=== PATIENT | male | born 1955 | race Caucasian/White ===

== ENCOUNTER 2019-06-05 16:38 | Emergency (ER) | payer MEDICARE, BC ==
[2019-06-05] MEDS ORDERED: Aspirin 325 MG Tab.EC PO ONE (17:08)
--- NOTE | 2019-06-05 17:36 | EDM.PDOC ---
<Sd Garcia - Last Filed: 06/05/19 19:15> ED HPI GENERAL MEDICAL PROBLEM - General Chief Complaint: Chest Pain Stated Complaint: CHEST PAIN Time Seen by Provider: 06/05/19 16:50 Source of Information: Reports: Patient History Limitations: Reports: No Limitations - History of Present Illness INITIAL COMMENTS - FREE TEXT/NARRATIVE: This is a 63-year-old male with a history of coronary artery disease requiring CABG, hypertension, hyperlipidemia who presents with concerns of chest pain. He reports that his symptoms started yesterday evening. He had a sensation of burning chest pain across his entire chest including his shoulders. The pain came on while he was at rest. He road the exercise bike earlier in the day and had no difficulty. There is no associated dyspnea. The pain has not been exertional. Pain subsided nearly went away overnight. He exercised again this morning. The pain then returned this afternoon prompting his presentation to the ER now. He reports he has no prior history of similar pain. He was not experiencing chest pain prior to his CABG. He has had no cough, fever or chills. Upper Chest Pain Score (Numeric/FACES): 5 - Related Data Allergies Allergy/AdvReac Type Severity Reaction Status Date / Time No Known Allergies Allergy Verified 06/05/19 17:23 Home Meds: Home Meds Fluticasone Propionate [Flonase] 2 spray NS DAILY PRN 04/14/15 [History] Aspirin [Adult Low Dose Aspirin EC] 1 tab PO DAILY 02/26/19 [History] Loratadine [Claritin] 1 tab PO DAILY PRN 02/26/19 [History] Multivitamin with Minerals [Multiple Vitamin] 1 tab PO DAILY 02/26/19 [History] Simvastatin [Zocor] 1 tab PO DAILY 02/26/19 [History] Doxycycline [Vibramycin] 100 mg PO BID 7 Days cap 06/05/19 [Rx] Metoprolol Tartrate [Lopressor] 12.5 mg PO BID 06/05/19 [History] Past Medical History HEENT History: Reports: Allergic Rhinitis, Impaired Vision, Sinusitis Cardiovascular History: Reports: High Cholesterol Gastrointestinal History: Reports: None Genitourinary History: Reports: Prostate Disorder Musculoskeletal History: Reports: Back Pain, Chronic Neurological History: Reports: None Dermatologic History: Reports: None - Infectious Disease History Infectious Disease History: Reports: C-Difficile, Measles, Mumps - Past Surgical History Neurological Surgical History: Reports: Lumbar Spine Dermatological Surgical History: Reports: Other (See Below) ED ROS GENERAL - Review of Systems Review Of Systems: See Below HEENT: Reports: No Symptoms Respiratory: Reports: No Symptoms Cardiovascular: Reports: Chest Pain Endocrine: Reports: No Symptoms GI/Abdominal: Reports: No Symptoms : Reports: No Symptoms Musculoskeletal: Reports: No Symptoms Skin: Reports: No Symptoms Neurological: Reports: No Symptoms Psychiatric: Reports: No Symptoms Hematologic/Lymphatic: Reports: No Symptoms Immunologic: Reports: No Symptoms ED EXAM, GENERAL - Physical Exam Exam: See Below Exam Limited By: No Limitations General Appearance: Alert, No Apparent Distress Ears: Normal External Exam Nose: Normal Inspection Throat/Mouth: Normal Inspection Head: Atraumatic, Normocephalic Neck: Normal Inspection Respiratory/Chest: Lungs Clear, Other (Diffuse chest wall tenderness.) Cardiovascular: Regular Rate, Rhythm, No Murmur GI/Abdominal: Soft, Non-Tender Back Exam: Normal Inspection Extremities: Normal Inspection Neurological: Alert, Oriented Psychiatric: Normal Affect, Normal Mood Skin Exam: Warm, Dry Course - Vital Signs Last Recorded V/S: Last Vital Signs Temp 36.4 C 06/05/19 17:38 Pulse 72 06/05/19 18:42 Resp 19 06/05/19 18:42 BP 172/84 H 06/05/19 18:42 Pulse Ox 98 06/05/19 18:42 - Orders/Labs/Meds Orders: Active Orders 24 hr Category Date Time Status CXR [Chest 2V] [CR] Stat Exams 06/05/19 17:06 Taken Iopamidol [Isovue-370 (76%)] Med 06/05/19 18:45 Active 100 ml IV . DIRECTED Sodium Chloride 0.9% [Normal Saline] 100 ml Med 06/05/19 18:45 Active IV ASDIRECTED Sodium Chloride 0.9% [Saline Flush] Med 06/05/19 18:39 Active 10 ml FLUSH ASDIRECTED PRN Medication Orders Sodium Chloride (Normal Saline) 100 mls @ 3 mls/sec IV ASDIRECTED TIMMY Last Admin: 06/05/19 19:03 Dose: 3 mls/sec Iopamidol (Isovue-370 (76%)) 100 ml IV . DIRECTED TIMMY Last Admin: 06/05/19 19:03 Dose: 100 ml Sodium Chloride (Saline Flush) 10 ml FLUSH ASDIRECTED PRN PRN Reason: Keep Vein Open Last Admin: 06/05/19 19:03 Dose: 10 ml Labs: Laboratory Tests 06/05/19 06/05/19 Range/Units 17:22 17:22 WBC 7.1 (4.5-11.0) K/uL RBC 4.91 (4.30-5.90) M/uL Hgb 14.5 (12.0-15.0) g/dL Hct 44.6 (40.0-54.0) % MCV 91 (80-98) fL MCH 30 (27-31) pg MCHC 33 (32-36) % Plt Count 222 (150-400) K/uL Sodium 140 (140-148) mmol/L Potassium 4.2 (3.6-5.2) mmol/L Chloride 102 (100-108) mmol/L Carbon Dioxide 31 (21-32) mmol/L Anion Gap 6.6 (5.0-14.0) mmol/L BUN 15 (7-18) mg/dL Creatinine 1.0 (0.8-1.3) mg/dL Est Cr Clr Drug Dosing 68.85 mL/min Estimated GFR (MDRD) > 60 (>60) Glucose 131 H (74-106) mg/dL Calcium 8.4 L (8.5-10.1) mg/dL Total Bilirubin 0.2 (0.2-1.0) mg/dL AST 20 (15-37) U/L ALT 36 (12-78) U/L Alkaline Phosphatase 107 (46-116) U/L Troponin I < 0.017 (0.000-0.056) ng/mL Total Protein 6.9 (6.4-8.2) g/dL Albumin 2.9 L (3.4-5.0) g/dL Globulin 4.0 H (2.3-3.5) g/dL Albumin/Globulin Ratio 0.7 L (1.2-2.2) Lipase 73 (73-393) U/L Meds: Medications Generic Name Dose Route Start Last Admin Trade Name Freq PRN Reason Stop Dose Admin Sodium Chloride 100 mls @ 3 mls/sec 06/05/19 18:45 06/05/19 19:03 Normal Saline IV 3 mls/sec ASDIRECTED TIMMY Administration Iopamidol 100 ml 06/05/19 18:45 06/05/19 19:03 Isovue-370 (76%) IV 100 ml . DIRECTED TIMMY Administration Sodium Chloride 10 ml 06/05/19 18:39 06/05/19 19:03 Saline Flush FLUSH 10 ml ASDIRECTED PRN Administration Keep Vein Open Discontinued Medications Generic Name Dose Route Start Last Admin Trade Name Felipe PRN Reason Stop Dose Admin Aspirin 325 mg 06/05/19 17:08 06/05/19 17:23 Ecotrin PO 06/05/19 17:09 325 mg ONETIME ONE Administration Doxycycline Hyclate 100 mg 06/05/19 19:21 06/05/19 20:15 Vibramycin PO 06/05/19 19:22 100 mg ONETIME ONE Administration - Re-Assessments/Exams Free Text/Narrative Re-Assessment/Exam: 63-year-old presents with concerns of chest pain. History of CAD and prior CABG. On exam he is normal vitals, exam is notable for chest wall tenderness. His EKG is nonischemic. He has a right bundle branch block, when I review his old stress test I do see this was noted in the interpretation. Low concern for PE. We are obtaining chest x-ray, basic labs, and troponin testing. Although he is high risk for ACS the reproducibility of his pain is reassuring. 06/05/19 17:37 Free Text/Narrative Re-Assessment/Exam: Labs unremarkable. CXR shows left sided pleural effusion/consolidation. Bedside US performed, verified small left pleural effusion along with consolidation or atelectasis. His markedly hypertensive, SBP 200s Continues to complain of pain, now in his back. We are going to obtain a CTA of his chest, although unlikely I think we need to r/o dissection. Will otherwise plan to treat for infection, he is now endorsing more cough than I initially appreciated. Will need PCP f/u to ensure resolution 06/05/19 18:34 Free Text/Narrative Re-Assessment/Exam: CT chest shows LLL consolidation with pleural effusion on my read. We await formal radiology read. Patient is being signed out to Dr Staley, if no further abnormality on CT identified with have follow up with PCP to ensure resolution, re-eval his BP as well. Will prescribe course of doxycycline. Vitals remain stable. 06/05/19 19:15 Departure - Departure Disposition: Home, Self-Care 01 Clinical Impression: Pleural effusion, left LLL pneumonia Qualifiers: Pneumonia type: due to unspecified organism Qualified Code(s): J18.9 - Pneumonia, unspecified organism Prescriptions: Doxycycline [Vibramycin] 100 mg PO BID 7 Days cap Instructions: Pleural Effusion, Community-Acquired Pneumonia, Adult Referrals: PCP,None [Primary Care Provider] - Forms: ED Department Discharge Additional Instructions: Please take the prescribed antibiotic Is it important that you make a follow up appointment with your primary doctor to ensure your symptoms have resolved and your imaging has normalized. You can also discuss your blood pressure. If you develop worsening shortness of breath or pain please return to the ED. Sepsis Event Note - Focused Exam Vital Signs: Vital Signs Temp Pulse Resp BP Pulse Ox 06/05/19 18:42 72 19 172/84 H 98 06/05/19 18:25 71 19 202/90 H 98 06/05/19 17:38 36.4 C 73 14 185/87 H 97 06/05/19 16:51 36.4 C 73 14 185/87 H 97 Date Exam was Performed: 06/05/19 Time Exam was Performed: 19:15 <Roderick Staley G - Last Filed: 06/05/19 20:26> Course - Radiology Interpretation Free Text/Narrative:: CT chest with contrast-IMPRESSION: 1. Small to moderate-sized left pleural effusion with adjacent compressive atelectasis and discoid atelectasis in the lingula. 2. No right pleural effusion. The right lung is aerated. 3. No evidence of pulmonary thromboembolism. Please note that all CT scans at this facility use dose modulation, iterative reconstruction, and/or weight-based dosing when appropriate to reduce radiation dose to as low as reasonably achievable. Dictated by Loly Gandara MD @ Jun 05 2019 7:59PM CT Results Date: 06/05/19 CT Results Time: 20:26 Departure - Departure Time of Disposition: 20:26 Sepsis Event Note - Focused Exam Date Exam was Performed: 06/05/19 Time Exam was Performed: 20:25
[2019-06-05] MEDS ORDERED: Sodium Chloride 0.9% 10 ML Syringe FLUSH PRN (18:39)
[2019-06-05 18:43] VITALS: BP 172/84; PULSE 72
[2019-06-05] MEDS ORDERED: Sodium Chloride 0.9% 100 ML IV SCH (18:45)
[2019-06-05] MEDS ORDERED: Iopamidol 755 Mg/ML 100 ML Bottle IV SCH (18:45)
[2019-06-05] MEDS ORDERED: Doxycycline 100 MG Cap PO ONE (19:21)
--- NOTE | 2019-06-05 20:24 | CRLCT ---
INDICATION: Chest pain radiating to back, left effusion COMPARISON: CT lung cancer screen 01/26/2019 TECHNIQUE: Contrast enhanced axial CT imaging through the chest, optimized for assessment of the pulmonary arterial tree. 100 mL Isovue 370 contrast agent was administered intravenously. Sagittal and coronal reconstructions are provided. FINDINGS: There is adequate opacification of the pulmonary arterial tree without evidence of thromboembolism. The main pulmonary artery is nondilated. The heart is non enlarged. Coronary artery disease and CABG changes are noted. There is no pericardial effusion. There is normal caliber of the thoracic aorta. There is no mediastinal lymphadenopathy. There is a small to moderate size left pleural effusion. There is moderate compressive atelectasis of the posterior basal left lower lobe. There is also discoid atelectasis in the lingula. The right lung is aerated. There is no right pleural effusion. Mild apical predominant emphysematous changes are noted bilaterally. No significant abnormality is demonstrated in the visualized upper abdomen. IMPRESSION: 1. Small to moderate-sized left pleural effusion with adjacent compressive atelectasis and discoid atelectasis in the lingula. 2. No right pleural effusion. The right lung is aerated. 3. No evidence of pulmonary thromboembolism. Please note that all CT scans at this facility use dose modulation, iterative reconstruction, and/or weight-based dosing when appropriate to reduce radiation dose to as low as reasonably achievable. Dictated by Loly Gandara MD @ Jun 05 2019 7:59PM Signed by Dr. Loly Gandara @ Jun 05 2019 8:23PM
--- NOTE | 2019-06-07 10:42 | CR ---
CHEST: 2 view CLINICAL HISTORY:Chest pain COMPARISON:CT chest January 2019 FINDINGS: Heart size and pulmonary vascular are normal. There has been previous sternotomy. There is a left pleural effusion. There is some streaky airspace disease which is likely some compressive atelectasis. Underlying infiltrate is not excluded.. There is a mild anterior wedge compression of T11. Chronology is uncertain. IMPRESSION: Small left pleural effusion and underlying airspace disease which may be atelectasis and/or infiltrate
== END 2019-06-05 20:47 | disposition home or self-care (01) ==
LOC: JP.ED 16:38
DX: J18.9 Pneumonia, unspecified organism (principal); J90 Pleural effusion, not elsewhere classified; E78.00 Pure hypercholesterolemia, unspecified; I25.10 Atherosclerotic heart disease of native coronary artery without angina pectoris; Z95.1 Presence of aortocoronary bypass graft; Z79.82 Long term (current) use of aspirin; Z79.899 Other long term (current) drug therapy
CPT/HCPCS: 36415; 71046; 71275; 80053; 83690; 84484; 85027; 93005; 93010; 99284; 99285; A9270; J7050; Q9967

== ENCOUNTER 2019-06-07 07:30 | Emergency (ER) | payer MEDICARE, BC ==
--- NOTE | 2019-06-07 07:59 | EDM.PDOC ---
ED HPI GENERAL MEDICAL PROBLEM - General Chief Complaint: Chest Pain Stated Complaint: PAIN IN CHEST AND ARM Time Seen by Provider: 06/07/19 07:40 Source of Information: Reports: Patient History Limitations: Reports: No Limitations - History of Present Illness INITIAL COMMENTS - FREE TEXT/NARRATIVE: 63-year-old male who underwent a cardiac bypass in February, was doing well but over the past several days has had persistent pleuritic-like chest pain, radiating to the back and painful over the anterior chest. It is bothering him at night and he is having difficulty sleeping, he is very anxious about it. He came into the emergency room 2 days ago and had a very complete work-up including a CT angiogram of his chest which revealed only a small pleural effusion and possible infiltrate in the left lung base. He was started on doxycycline. He had trouble sleeping again last night and because there is no improvement he is concerned. He was fairly hypertensive on his first visit, that is much improved, his vitals are otherwise normal, he is in no respiratory distress and just appears anxious. His mate chief shows a right bundle branch block which is consistent with his previous recordings. Onset: Unknown/Unsure (Several days of discomfort) Location: Reports: Chest, Back Associated Symptoms: Reports: No Other Symptoms Chest Pain Score (Numeric/FACES): 5 - Related Data Allergies Allergy/AdvReac Type Severity Reaction Status Date / Time No Known Allergies Allergy Verified 06/07/19 07:41 Home Meds: Home Meds Fluticasone Propionate [Flonase] 2 spray NS DAILY PRN 04/14/15 [History] Aspirin [Adult Low Dose Aspirin EC] 81 mg PO DAILY 02/26/19 [History] Loratadine [Claritin] 1 tab PO DAILY PRN 02/26/19 [History] Multivitamin with Minerals [Multiple Vitamin] 1 tab PO DAILY 02/26/19 [History] Simvastatin [Zocor] 1 tab PO DAILY 02/26/19 [History] Metoprolol Tartrate [Lopressor] 12.5 mg PO BID 06/05/19 [History] Acetaminophen/oxyCODONE [Percocet 325-5 MG] 1 tab PO ASDIRECTED PRN 06/07/19 [ History] Doxycycline [Vibramycin] 100 mg PO BID 06/07/19 [History] guaiFENesin [Mucinex] 600 mg PO BID 06/07/19 [History] Past Medical History HEENT History: Reports: Allergic Rhinitis, Impaired Vision, Sinusitis Cardiovascular History: Reports: High Cholesterol Gastrointestinal History: Reports: None Genitourinary History: Reports: Prostate Disorder Musculoskeletal History: Reports: Back Pain, Chronic Neurological History: Reports: None Hematologic History: Reports: Blood Transfusion(s) Dermatologic History: Reports: None - Infectious Disease History Infectious Disease History: Reports: C-Difficile, Measles, Mumps - Past Surgical History Cardiovascular Surgical History: Reports: Carotid Endarterectomy, Coronary Artery Bypass Neurological Surgical History: Reports: Lumbar Spine Social & Family History - Tobacco Use Smoking Status *Q: Former Smoker Years of Tobacco use: 45 Packs/Tins Daily: 1 Used Tobacco, but Quit: Yes Month/Year Tobacco Last Used: feb 2018 - Caffeine Use Caffeine Use: Reports: Coffee ED ROS GENERAL - Review of Systems Review Of Systems: See Below Constitutional: Denies: Fever, Chills HEENT: Reports: No Symptoms Respiratory: Reports: Pleuritic Chest Pain. Denies: Shortness of Breath Cardiovascular: Reports: Chest Pain. Denies: Dyspnea on Exertion, Palpitations GI/Abdominal: Denies: Nausea, Vomiting Skin: Reports: No Symptoms Neurological: Denies: Headache Psychiatric: Reports: Anxiety ED EXAM, GENERAL - Physical Exam Exam: See Below Exam Limited By: No Limitations General Appearance: Alert, Anxious Head: Atraumatic Respiratory/Chest: No Respiratory Distress, Lungs Clear, Other (He definitely reacts with discomfort to any palpation around the sternum, even with light to moderate palpation) Cardiovascular: Regular Rate, Rhythm GI/Abdominal: Soft, Non-Tender Extremities: Normal Inspection. No: Pedal Edema Neurological: Alert, Oriented, No Motor/Sensory Deficits Psychiatric: Anxious Skin Exam: Warm, Dry EKG INTERPRETATION Rhythm: NSR QRS: RBBB Comparison: No Change Course - Vital Signs Last Recorded V/S: Last Vital Signs Temp 95.1 F L 06/07/19 07:40 Pulse 84 06/07/19 08:37 Resp 12 06/07/19 08:37 BP 178/91 H 06/07/19 08:37 Pulse Ox 97 06/07/19 08:37 - Orders/Labs/Meds Orders: Active Orders 24 hr Category Date Time Status EKG Documentation Completion [RC] ASDIRECTED Care 06/07/19 08:00 Active Chest 2V [CR] Routine Exams 06/07/19 07:52 Taken EKG 12 Lead [EK] Routine Ther 06/07/19 08:00 Ordered - Re-Assessments/Exams Free Text/Narrative Re-Assessment/Exam: 06/07/19 07:59 EKG was done on arrival which is stable from previous. I reviewed his ER visit , the only thing worthwhile repeating I think is the x-ray to make sure the pleural effusion or infiltrate is not increasing. This was ordered. 06/07/19 08:23 2 view chest x-ray looks slightly better, at worst unchanged from 2 days ago. I reassured the patient that we really do not have to repeat most of the work- up that was done, I believe this is a pleuritic type pain combined with some costochondritis or musculoskeletal discomfort. He was reassured and will continue his regular medications. I did offer him some extra pain control or antianxiety medication to take at bedtime to help him sleep but he declined. He will return if worsening. Departure - Departure Time of Disposition: 09:21 Disposition: Home, Self-Care 01 Clinical Impression: Pleural effusion, left, Atypical chest pain - Discharge Information Instructions: Pleurisy, [id number] Referrals: PCP,None [Primary Care Provider] - Forms: ED Department Discharge Care Plan Goals: Continue your current medications, and a regular dose of ibuprofen may be beneficial over the next several days. Increase activity as tolerated and you can return anytime if worsening or concerns. Otherwise recheck with your primary provider as scheduled. Sepsis Event Note - Evaluation Sepsis Screening Result: No Definite Risk - Focused Exam Vital Signs: Vital Signs Temp Pulse Resp BP Pulse Ox 06/07/19 08:37 84 12 178/91 H 97 06/07/19 07:40 95.1 F L 95 14 161/95 H 97 Date Exam was Performed: 06/07/19 Time Exam was Performed: 09:52 - My Orders Last 24 Hours: My Active Orders 06/07/19 07:52 Chest 2V [CR] Routine 06/07/19 08:00 EKG Documentation Completion [RC] ASDIRECTED EKG 12 Lead [EK] Routine - Assessment/Plan Last 24 Hours: My Active Orders 06/07/19 07:52 Chest 2V [CR] Routine 06/07/19 08:00 EKG Documentation Completion [RC] ASDIRECTED EKG 12 Lead [EK] Routine
[2019-06-07 08:37] VITALS: BP 178/91; PULSE 84
--- NOTE | 2019-06-07 11:13 | CR ---
CHEST: 2 view CLINICAL HISTORY:Dyspnea COMPARISON:CT 06/05/2019 FINDINGS: Heart size and pulmonary vascularity are normal. Patient has had previous sternotomy. There is persistent airspace disease in the left lower lobe. There appears to be some improvement when compared to the CT. Impression: Persistent left pleural effusion and left lower lobe and lingular airspace disease with slight improvement since prior study.
== END 2019-06-07 09:21 | disposition home or self-care (01) ==
LOC: JP.ED 07:30
DX: J90 Pleural effusion, not elsewhere classified (principal); E78.00 Pure hypercholesterolemia, unspecified; Z79.899 Other long term (current) drug therapy; Z79.82 Long term (current) use of aspirin; Z87.891 Personal history of nicotine dependence
CPT/HCPCS: 71046; 71046-26; 93005; 93010; 99283; 99285-25